=== PATIENT | female | born 1990 ===

== ENCOUNTER 2025-06-15 18:54 | Emergency (ER) | payer OTHER ==
[~2025-06-15] VITALS: Ht 157.5 cm; Wt 59.0 kg
[2025-06-15 19:10] VITALS: BP 97/60
== END 2025-06-15 21:18 | disposition home or self-care (01) ==
LOC: ER 18:54
DX: S61.411A Laceration without foreign body of right hand, initial encounter (principal); W45.8XXA Other foreign body or object entering through skin, initial encounter; Z23 Encounter for immunization
CPT/HCPCS: 12002; 90471; 90715; 99282-25